=== PATIENT | female | born 1930 | race Caucasian/White ===

== ENCOUNTER 2020-09-28 12:38 | Inpatient (IN) ==
[2020-09-28 13:05] LABS: Basophils % 0.4 % (0.0-0.8); Eosinophils # 0.1 10*3/uL (0.0-0.87); Eosinophils % 0.9 % (0.00-10.9); Hematocrit 42.9 VOL% (35.7-47.0); Hemoglobin 14.1 GM/DL (12.0-16.0); Immature Granulocytes % 0.3 %; Immature Granulocytes Absolute 0.03 #; Lymphocytes # 0.7 10*3/uL (1.4-4.0); Lymphocytes % 6.6 % (21.3-54.2); Mean Corpuscular HGB Conc 32.9 GM/DL (32-36); Mean Corpuscular Volume 95.1 FL (87-102); Mean Platelet Volume 9.5 FL (9.6-12.0); Monocytes % 7.2 % (1.7-12.7); Neutrophils % 84.6 % (38.7-73.9); Platelet Count 321 T/CUMM (130-400); Red Blood Count 4.51 MC/CUMM (3.8-5.5); Red Cell Distribution Width 13.2 % (9.3-17.3); White Blood Count 10.7 T/CUMM (4-12)
[2020-09-28] MEDS ORDERED: DILTIAZEM 50 MG/10 ML VIAL IV STA (13:05)
[2020-09-28] MEDS ORDERED: SODIUM CHLORIDE 0.9% 500 ML IV STA ×2 (13:05→13:56)
[2020-09-28 13:22] LABS: Bilirubin,Total 0.7 MG/DL (0.2-1.0); Calcium 8.4 MG/DL (8.5-10.1); Potassium 3.5 MMOL/L (3.5-5.1); Total Protein 6.3 G/DL (6.4-8.2)
[2020-09-28] MEDS: DILTIAZEM INJ 100 MG in SODIUM CHLORIDE 0.9% 100 ML IV SCH ×2 (13:28→22:01)
[2020-09-28] MEDS ORDERED: ALUMINUM/MAGNES/SIMETH MAX STR 30 ML UDCUP PO PRN (14:46)
[2020-09-28] MEDS ORDERED: DEXTROSE 50% 25 GM/50 ML VIAL IV PRN (14:46)
[2020-09-28] MEDS ORDERED: GLUCAGON 1 MG VIAL IM PRN (14:46)
[2020-09-28] MEDS ORDERED: ACETAMINOPHEN 325 MG TABLET PO PRN (14:46)
[2020-09-28] MEDS ORDERED: DOCUSATE SODIUM 100 MG CAPSULE PO PRN (14:46)
[2020-09-28] MEDS: SODIUM CHLORIDE 0.9% 1,000 ML IV SCH (15:53)
[2020-09-28] MEDS ORDERED: ONDANSETRON 4 MG/2 ML VIAL IV PRN (15:58)
[2020-09-28] MEDS ORDERED: HALOPERIDOL 5 MG/ML AMP IM ONE (18:36)
[2020-09-28] MEDS: METOPROLOL TARTRATE 25 MG TABLET PO SCH (22:00)
[2020-09-29] MEDS: HALOPERIDOL 5 MG/ML AMP IV PRN ×2 (02:58→10:14)
[2020-09-29] MEDS: SODIUM CHLORIDE 0.9% 1,000 ML IV SCH ×2 (05:18→18:11)
[2020-09-29] MEDS: DILTIAZEM INJ 100 MG in SODIUM CHLORIDE 0.9% 100 ML IV SCH (05:21)
[2020-09-29 06:05] LABS: Basophils # 0.1 10*3/uL (0.0-0.2); Basophils % 0.5 % (0.0-0.8); Eosinophils # 0.1 10*3/uL (0.0-0.87); Eosinophils % 0.8 % (0.00-10.9); Hematocrit 40.3 VOL% (35.7-47.0); Hemoglobin 13.3 GM/DL (12.0-16.0); Immature Granulocytes % 0.5 %; Immature Granulocytes Absolute 0.05 #; Lymphocytes # 1.1 10*3/uL (1.4-4.0); Lymphocytes % 10.5 % (21.3-54.2); Mean Corpuscular Volume 96.2 FL (87-102); Mean Platelet Volume 9.8 FL (9.6-12.0); Monocytes % 7.4 % (1.7-12.7); Neutrophils % 80.3 % (38.7-73.9); Platelet Count 334 T/CUMM (130-400); Red Blood Count 4.19 MC/CUMM (3.8-5.5); Red Cell Distribution Width 13.2 % (9.3-17.3); White Blood Count 10.3 T/CUMM (4-12)
[2020-09-29 06:24] LABS: Calcium 8.4 MG/DL (8.5-10.1); Osmolality,Calculated 288.8 MOS/KG (273-304); Potassium 3.9 MMOL/L (3.5-5.1)
[2020-09-29] MEDS: METOPROLOL TARTRATE 25 MG TABLET PO SCH (09:59)
[2020-09-29] MEDS: METOPROLOL TARTRATE 50 MG TABLET PO SCH ×3 (10:14→20:17)
[2020-09-29] MEDS: DILTIAZEM 30 MG TABLET PO SCH ×4 (13:17→20:18)
[2020-09-30] MEDS: SODIUM CHLORIDE 0.9% 1,000 ML IV SCH ×3 (05:57→19:57)
[2020-09-30] MEDS: METOPROLOL TARTRATE 50 MG TABLET PO SCH ×2 (08:09→20:03)
[2020-09-30] MEDS: DILTIAZEM 30 MG TABLET PO SCH ×4 (08:09→20:03)
[2020-09-30] MEDS: HALOPERIDOL 5 MG/ML AMP IV PRN (17:51)
[2020-10-01] MEDS: HALOPERIDOL 5 MG/ML AMP IV PRN ×2 (04:31→14:46)
[2020-10-01] MEDS: SODIUM CHLORIDE 0.9% 1,000 ML IV SCH ×3 (06:51→23:00)
[2020-10-01] MEDS: DILTIAZEM 30 MG TABLET PO SCH ×4 (09:03→20:08)
[2020-10-01] MEDS: METOPROLOL TARTRATE 50 MG TABLET PO SCH ×2 (09:03→20:08)
[2020-10-01] MEDS ORDERED: METOPROLOL TARTRATE 5 MG/5 ML VIAL IV ONE (15:51)
[2020-10-02] MEDS: HALOPERIDOL 5 MG/ML AMP IV PRN ×2 (05:03→20:42)
[2020-10-02] MEDS: SODIUM CHLORIDE 0.9% 1,000 ML IV SCH (06:35)
[2020-10-02] MEDS: DILTIAZEM 30 MG TABLET PO SCH (08:01)
[2020-10-02] MEDS: METOPROLOL TARTRATE 50 MG TABLET PO SCH ×2 (08:01→20:42)
[2020-10-02] MEDS ORDERED: METOPROLOL TARTRATE 5 MG/5 ML VIAL IV ONE ×2 (10:35→16:30)
[2020-10-02] MEDS: DILTIAZEM 60 MG TABLET PO SCH ×3 (12:45→20:43)
[2020-10-03] MEDS: HALOPERIDOL 5 MG/ML AMP IV PRN ×3 (04:55→19:07)
[2020-10-03 06:08] LABS: Basophils % 0.4 % (0.0-0.8); Eosinophils # 0.1 10*3/uL (0.0-0.87); Eosinophils % 0.7 % (0.00-10.9); Hematocrit 41.9 VOL% (35.7-47.0); Hemoglobin 13.5 GM/DL (12.0-16.0); Immature Granulocytes % 0.5 %; Immature Granulocytes Absolute 0.05 #; Lymphocytes # 0.7 10*3/uL (1.4-4.0); Lymphocytes % 6.7 % (21.3-54.2); Mean Corpuscular HGB Conc 32.2 GM/DL (32-36); Mean Corpuscular Volume 96.5 FL (87-102); Mean Platelet Volume 10.3 FL (9.6-12.0); Monocytes % 5.8 % (1.7-12.7); Neutrophils % 85.9 % (38.7-73.9); Platelet Count 293 T/CUMM (130-400); Red Blood Count 4.34 MC/CUMM (3.8-5.5); Red Cell Distribution Width 13.4 % (9.3-17.3); White Blood Count 10.3 T/CUMM (4-12)
[2020-10-03 06:36] LABS: Calcium 8.4 MG/DL (8.5-10.1); Osmolality,Calculated 302.1 MOS/KG (273-304); Potassium 3.3 MMOL/L (3.5-5.1)
[2020-10-03] MEDS: METOPROLOL TARTRATE 50 MG TABLET PO SCH ×2 (08:32→20:40)
[2020-10-03] MEDS: DILTIAZEM 60 MG TABLET PO SCH ×3 (08:32→12:13)
[2020-10-03] MEDS: POTASSIUM CHLORIDE 20 MEQ TABLET PO PRN ×3 (11:29→17:14)
[2020-10-03] MEDS ORDERED: DILTIAZEM 90 MG TABLET PO SCH (13:00)
[2020-10-03] MEDS ORDERED: SODIUM CHLORIDE 0.45% 1,000 ML IV SCH (17:00)
[2020-10-03] MEDS: DILTIAZEM INJ 100 MG in SODIUM CHLORIDE 0.9% 100 ML IV SCH (17:13)
[2020-10-03] MEDS: ASPIRIN CHEW 81 MG TABLET PO SCH (17:14)
[2020-10-03] MEDS: ASCORBIC ACID 500 MG TABLET PO SCH (20:40)
[2020-10-04] MEDS: HALOPERIDOL 5 MG/ML AMP IV PRN (04:15)
[2020-10-04 05:21] LABS: Basophils % 0.2 % (0.0-0.8); Eosinophils # 0.1 10*3/uL (0.0-0.87); Eosinophils % 0.7 % (0.00-10.9); Hematocrit 42.2 VOL% (35.7-47.0); Hemoglobin 13.5 GM/DL (12.0-16.0); Immature Granulocytes % 0.4 %; Immature Granulocytes Absolute 0.05 #; Lymphocytes # 0.8 10*3/uL (1.4-4.0); Lymphocytes % 6.3 % (21.3-54.2); Mean Corpuscular Volume 99.1 FL (87-102); Mean Platelet Volume 10.3 FL (9.6-12.0); Monocytes % 7.1 % (1.7-12.7); Neutrophils % 85.3 % (38.7-73.9); Platelet Count 272 T/CUMM (130-400); Red Blood Count 4.26 MC/CUMM (3.8-5.5); Red Cell Distribution Width 13.6 % (9.3-17.3); White Blood Count 12.1 T/CUMM (4-12)
[2020-10-04 05:52] LABS: Calcium 8.3 MG/DL (8.5-10.1); Potassium 4.1 MMOL/L (3.5-5.1)
[2020-10-04] MEDS: DILTIAZEM INJ 100 MG in SODIUM CHLORIDE 0.9% 100 ML IV SCH ×4 (06:40→21:28)
[2020-10-04] MEDS ORDERED: DILTIAZEM 50 MG/10 ML VIAL IV ONE (07:28)
[2020-10-04] MEDS: SODIUM CHLORIDE 0.45% 1,000 ML IV SCH ×2 (08:39→22:13)
[2020-10-04] MEDS: ASPIRIN CHEW 81 MG TABLET PO SCH (09:47)
[2020-10-04] MEDS: METOPROLOL TARTRATE 50 MG TABLET PO SCH ×2 (09:47→20:33)
[2020-10-04] MEDS: ASCORBIC ACID 500 MG TABLET PO SCH ×2 (09:47→20:33)
[2020-10-04] MEDS ORDERED: SODIUM CHLORIDE 0.45% 500 ML IV ONE (12:06)
[2020-10-05] MEDS: SODIUM CHLORIDE 0.45% 1,000 ML IV SCH ×2 (06:51→11:29)
[2020-10-05 07:28] LABS: Basophils % 0.3 % (0.0-0.8); Eosinophils # 0.2 10*3/uL (0.0-0.87); Eosinophils % 1.5 % (0.00-10.9); Hematocrit 38.7 VOL% (35.7-47.0); Hemoglobin 13.1 GM/DL (12.0-16.0); Immature Granulocytes % 0.8 %; Lymphocytes # 0.8 10*3/uL (1.4-4.0); Lymphocytes % 6.4 % (21.3-54.2); Mean Corpuscular HGB Conc 33.9 GM/DL (32-36); Mean Corpuscular Volume 96.8 FL (87-102); Mean Platelet Volume 10.4 FL (9.6-12.0); Monocytes % 6.9 % (1.7-12.7); Neutrophils % 84.1 % (38.7-73.9); Platelet Count 248 T/CUMM (130-400); Red Cell Distribution Width 13.6 % (9.3-17.3); White Blood Count 11.8 T/CUMM (4-12)
[2020-10-05] MEDS ORDERED: DILTIAZEM 60 MG TABLET PO SCH (07:28)
[2020-10-05 07:48] LABS: Calcium 7.9 MG/DL (8.5-10.1); Osmolality,Calculated 293.7 MOS/KG (273-304); Potassium 3.3 MMOL/L (3.5-5.1)
[2020-10-05] MEDS ORDERED: POTASSIUM CHLORIDE 20 MEQ TABLET PO ONE (08:20)
[2020-10-05] MEDS ORDERED: SODIUM CHLORIDE 0.45% 500 ML IV ONE (08:21)
[2020-10-05] MEDS: ASCORBIC ACID 500 MG TABLET PO SCH ×2 (08:33→21:00)
[2020-10-05] MEDS: ASPIRIN CHEW 81 MG TABLET PO SCH (08:34)
[2020-10-05] MEDS: METOPROLOL TARTRATE 50 MG TABLET PO SCH ×2 (08:34→21:00)
[2020-10-05] MEDS ORDERED: DILTIAZEM 30 MG TABLET PO SCH (12:00)
[2020-10-05] MEDS ORDERED: AMIODARONE 200 MG TABLET PO SCH (14:30)
[2020-10-06] MEDS: SODIUM CHLORIDE 0.45% 1,000 ML IV SCH ×2 (00:48→13:54)
[2020-10-06 05:14] LABS: Basophils # 0.1 10*3/uL (0.0-0.2); Basophils % 0.5 % (0.0-0.8); Eosinophils # 0.2 10*3/uL (0.0-0.87); Eosinophils % 1.9 % (0.00-10.9); Hematocrit 41.4 VOL% (35.7-47.0); Hemoglobin 13.7 GM/DL (12.0-16.0); Immature Granulocytes % 0.5 %; Immature Granulocytes Absolute 0.05 #; Lymphocytes # 0.7 10*3/uL (1.4-4.0); Lymphocytes % 7.2 % (21.3-54.2); Mean Corpuscular HGB Conc 33.1 GM/DL (32-36); Mean Corpuscular Volume 96.7 FL (87-102); Mean Platelet Volume 10.4 FL (9.6-12.0); Monocytes % 7.1 % (1.7-12.7); Neutrophils % 82.8 % (38.7-73.9); Platelet Count 254 T/CUMM (130-400); Red Blood Count 4.28 MC/CUMM (3.8-5.5); Red Cell Distribution Width 13.7 % (9.3-17.3); White Blood Count 9.6 T/CUMM (4-12)
[2020-10-06 06:01] LABS: Calcium 7.9 MG/DL (8.5-10.1); Osmolality,Calculated 292.6 MOS/KG (273-304); Potassium 3.3 MMOL/L (3.5-5.1)
[2020-10-06 06:20] LABS: Folate 13.28 NG/ML (5.38-24.0); Vitamin B12 313 PG/ML (211-911)
[2020-10-06] MEDS ORDERED: POTASSIUM CHLORIDE 20 MEQ TABLET PO ONE (08:06)
[2020-10-06] MEDS ORDERED: SODIUM CHLORIDE 0.45% 500 ML IV ONE (08:06)
[2020-10-06] MEDS: AMIODARONE 200 MG TABLET PO SCH ×2 (09:11→20:30)
[2020-10-06] MEDS: ASCORBIC ACID 500 MG TABLET PO SCH ×2 (09:11→20:31)
[2020-10-06] MEDS: ASPIRIN CHEW 81 MG TABLET PO SCH (09:11)
[2020-10-06] MEDS: METOPROLOL TARTRATE 50 MG TABLET PO SCH ×2 (09:11→20:30)
[2020-10-06] MEDS: DILTIAZEM 60 MG TABLET PO SCH ×2 (11:24→18:25)
[2020-10-07] MEDS: DILTIAZEM 60 MG TABLET PO SCH ×4 (00:23→17:27)
[2020-10-07] MEDS: SODIUM CHLORIDE 0.45% 1,000 ML IV SCH (01:55)
[2020-10-07 04:48] LABS: Basophils # 0.1 10*3/uL (0.0-0.2); Basophils % 0.5 % (0.0-0.8); Eosinophils # 0.2 10*3/uL (0.0-0.87); Eosinophils % 1.8 % (0.00-10.9); Hematocrit 41.7 VOL% (35.7-47.0); Hemoglobin 13.4 GM/DL (12.0-16.0); Immature Granulocytes % 0.7 %; Immature Granulocytes Absolute 0.07 #; Lymphocytes # 0.8 10*3/uL (1.4-4.0); Mean Corpuscular HGB Conc 32.1 GM/DL (32-36); Mean Corpuscular Volume 97.2 FL (87-102); Mean Platelet Volume 10.2 FL (9.6-12.0); Monocytes % 8.2 % (1.7-12.7); Neutrophils % 80.8 % (38.7-73.9); Platelet Count 256 T/CUMM (130-400); Red Blood Count 4.29 MC/CUMM (3.8-5.5); Red Cell Distribution Width 13.7 % (9.3-17.3); White Blood Count 10.2 T/CUMM (4-12)
[2020-10-07 05:10] LABS: Calcium 7.9 MG/DL (8.5-10.1); Potassium 3.4 MMOL/L (3.5-5.1)
[2020-10-07] MEDS: ASPIRIN CHEW 81 MG TABLET PO SCH (08:29)
[2020-10-07] MEDS: ASCORBIC ACID 500 MG TABLET PO SCH ×2 (08:29→23:32)
[2020-10-07] MEDS: METOPROLOL TARTRATE 50 MG TABLET PO SCH ×2 (08:29→23:33)
[2020-10-07] MEDS: AMIODARONE 200 MG TABLET PO SCH ×2 (08:30→23:33)
[2020-10-07] MEDS ORDERED: LEVALBUTEROL 1.25 MG/3 ML NEB RESP TX PRN (13:02)
[2020-10-07] MEDS ORDERED: LORazepam 2 MG/1 ML VIAL IV PRN (13:03)
[2020-10-08] MEDS: DILTIAZEM 60 MG TABLET PO SCH ×3 (01:30→08:20)
[2020-10-08] MEDS: ASCORBIC ACID 500 MG TABLET PO SCH (08:19)
[2020-10-08] MEDS: AMIODARONE 200 MG TABLET PO SCH (08:20)
[2020-10-08] MEDS: ASPIRIN CHEW 81 MG TABLET PO SCH (08:20)
[2020-10-08] MEDS: METOPROLOL TARTRATE 50 MG TABLET PO SCH (08:20)
[2020-10-08 12:35] VITALS: BP 146/70
== END 2020-10-08 13:45 | disposition hospice, inpatient (51) | DRG 309 ==
LOC: EDBD → EDUNIT# → N.ED 12:38 → SUATTDRO 15:58 → N.EDINP 15:58 → N.TELEN 17:23
PROVIDERS: ADMIT Family Medicine; ATTEND Internal Medicine